=== PATIENT | female | born 1960 | race Asian ===

== ENCOUNTER 2021-09-11 08:56 | Outpatient (CLI) | payer OTHER | END 2021-09-11 08:57 | disposition home or self-care (01) | LOC: BICMAMMO 08:56 | PROVIDERS: ATTEND Student in an Organized Health Care Education/Training Program | DX: M80.00XD Age-related osteoporosis with current pathological fracture, unspecified site, subsequent encounter for fracture with routine healing (principal) | CPT/HCPCS: 77080 ==

== ENCOUNTER 2022-01-22 08:02 | Outpatient (CLI) | payer OTHER ==
[2022-01-22] MEDS ORDERED: Iopamidol-370 76% 500 ML 1 ML ONE (09:37)
== END 2022-01-22 08:03 | disposition home or self-care (01) ==
LOC: BICCT 08:02
PROVIDERS: ATTEND Urology
DX: R31.29 Other microscopic hematuria (principal)
CPT/HCPCS: 74178; 82565; Q9967